=== PATIENT | male | born 1965 | race Caucasian/White ===

== ENCOUNTER → 2018-10-27 | Outpatient (CLI) | payer OTHER ==
[~2018-10-27] MED LIST: ALEVE 220MG220 MG PO; ALTACE 10MG TAB10 MG PO; KLONOPIN 0.5MG0.5 MG PO; KLONOPIN WAFE0.25 MG PO; LIPITOR 10MG10 MG PO; MAXZIDE-25MG TA1 TAB PO; ZOLOFT 100MG100 MG PO; ZYLOPRIM 300MG300 MG PO
== END ==
LOC: COL.RAD 12:58
DX: R11.2 Nausea with vomiting, unspecified (principal); R10.9 Unspecified abdominal pain

== ENCOUNTER → 2019-03-25 | Outpatient (CLI) | payer OTHER | LOC: MC.RAD 08:00 | DX: N63.20 Unspecified lump in the left breast, unspecified quadrant (principal); N62 Hypertrophy of breast ==

== ENCOUNTER → 2023-07-09 | Outpatient (RCR) | payer BC | END | disposition home or self-care (01) | LOC: MKS.ESL.PT | DX: M54.16 Radiculopathy, lumbar region (principal) ==

== ENCOUNTER 2023-07-30 10:30 | Outpatient (RCR) | payer BC | END 2023-08-09 | disposition home or self-care (01) | LOC: MKS.ESL.PT | DX: M54.16 Radiculopathy, lumbar region (principal) ==

== ENCOUNTER → 2023-09-01 | Outpatient (CLI) | payer BC | LOC: COL.RAD 11:45 | DX: M19.012 Primary osteoarthritis, left shoulder (principal) ==

== ENCOUNTER → 2023-09-01 | Outpatient (CLI) | payer BC | LOC: MHCPAIN 10:52 | DX: M54.16 Radiculopathy, lumbar region (principal); Z98.890 Other specified postprocedural states; R20.2 Paresthesia of skin; M25.512 Pain in left shoulder; M79.18 Myalgia, other site | CPT/HCPCS: G0463 ==

== ENCOUNTER 2023-09-02 10:30 | Outpatient (RCR) | payer BC | END 2023-09-09 | disposition home or self-care (01) | LOC: MKS.ESL.PT | DX: M54.16 Radiculopathy, lumbar region (principal) ==

== ENCOUNTER → 2023-10-13 | Outpatient (CLI) | payer BC | LOC: MHCPAIN 13:26 | DX: M79.18 Myalgia, other site (principal); R20.2 Paresthesia of skin; M54.16 Radiculopathy, lumbar region; M54.2 Cervicalgia; Z98.890 Other specified postprocedural states | CPT/HCPCS: G0463 ==

== ENCOUNTER → 2023-10-15 | Outpatient (CLI) | payer BC ==
[~2023-10-15] MED LIST changes: +Lidocaine PF 1% (10 MG/ML) 5 ML VIAL ONE; +Triamcinolone 40 MG/ML 1 ML VIAL ONE
== END ==
LOC: MHCPAIN 11:16
DX: M25.512 Pain in left shoulder (principal); M54.6 Pain in thoracic spine; M79.18 Myalgia, other site
CPT/HCPCS: J3301

== ENCOUNTER → 2024-04-26 | Outpatient (CLI) | payer BC | LOC: MHCPAIN 09:39 | DX: M18.51 Other unilateral secondary osteoarthritis of first carpometacarpal joint, right hand (principal); M18.52 Other unilateral secondary osteoarthritis of first carpometacarpal joint, left hand; M79.18 Myalgia, other site; M54.16 Radiculopathy, lumbar region | CPT/HCPCS: J3301 ==